=== PATIENT | male | born 2000 | race Caucasian/White ===

== ENCOUNTER 2019-12-20 02:21 | Emergency (ER) | payer OTHER ==
[~2019-12-20] VITALS: Ht 188 cm; Wt 87.1 kg
[~2019-12-20 02:21] MED LIST: ACCUTANE; IBUPROFEN 800800 MG PO
[2019-12-20] MEDS ORDERED: LORCET 5-325 M1 EACH PO (04:17)
[2019-12-20 04:30] VITALS: BP 111/71
== END 2019-12-20 04:30 | disposition home or self-care (01) ==
LOC: M.ERS 02:21
DX: S09.8XXA Other specified injuries of head, initial encounter (principal); V89.9XXA Person injured in unspecified vehicle accident, initial encounter; Y93.89 Activity, other specified; Y92.89 Other specified places as the place of occurrence of the external cause; Y99.8 Other external cause status

== ENCOUNTER 2019-12-31 15:01 | Emergency (ER) | payer OTHER ==
[~2019-12-31] VITALS: Ht 188 cm; Wt 87.1 kg
[~2019-12-31 15:01] MED LIST changes: +LORCET 5-325 M1 EACH PO
[2019-12-31 15:05] VITALS: BP 148/74
== END 2019-12-31 15:56 | disposition home or self-care (01) ==
LOC: M.ERS 15:01
DX: Z53.21 Procedure and treatment not carried out due to patient leaving prior to being seen by health care provider (principal)

== ENCOUNTER 2020-01-03 19:59 | Emergency (ER) | payer OTHER ==
[~2020-01-03] VITALS: Ht 188 cm; Wt 87.1 kg
[2020-01-03 20:23] LABS: URINE BILIRUBIN NEGATIVE (Negative); URINE BLOOD NEGATIVE (Negative); URINE CLARITY CLEAR; URINE COLOR YELLOW; URINE GLUCOSE-RANDOM NEGATIVE (Negative); URINE KETONES NEGATIVE (Negative); URINE LEUKOCYTES-REFLEX NEGATIVE (Negative); URINE NITRITE-REFLEX NEGATIVE (Negative); URINE PROTEIN NEGATIVE (Negative); URINE SPECIFIC GRAVITY >= 1.030 (1.005-1.030)
[2020-01-03 20:25] LABS: ABSOLUTE EOSINOPHILS 0.1 thou/uL (0.0-0.7); ABSOLUTE LYMPHOCYTES 2.7 thou/uL (0.8-5.3); ABSOLUTE MONOCYTES 0.6 thou/uL (0.0-1.2); ABSOLUTE NEUTROPHILS 2.5 thou/uL (1.6-8.1); BASOPHILS 0.4 %; EOSINOPHILS 2.1 %; HEMATOCRIT 39.9 % (42.0-52.0); HEMOGLOBIN 14.3 gm/dL (14.0-18.0); LYMPHOCYTES 44.9 %; MCH 30.1 pg (26.0-34.0); MCHC 35.9 g/dL (28.0-37.0); MCV 83.9 fL (80.0-100.0); MONOCYTES 10.1 %; MPV 7.8 fl. (7.2-11.1); NUCLEATED RBCS 0 /100WBC; PLATELET COUNT* 202 thou/uL (150-400); POLYS 42.5 %; RBC 4.76 mil/uL (4.50-6.00); RDW-CV 12.1 % (10.5-14.5)
[2020-01-03 20:31] LABS: CALCIUM 7.9 mg/dL (8.5-10.1); CREATININE 1.2 mg/dL (0.6-1.3); POTASSIUM 3.7 mmol/L (3.5-5.1)
[2020-01-03 20:36] LABS: ALBUMIN 3.7 g/dL (3.4-5.0); TOTAL BILIRUBIN 0.6 mg/dL (<0.1-1.0); TOTAL PROTEIN 7.3 g/dL (6.4-8.2)
[2020-01-03 21:17] VITALS: BP 130/70
== END 2020-01-03 21:22 | disposition home or self-care (01) ==
LOC: M.ERS 19:59
PROVIDERS: Family Medicine
DX: R10.31 Right lower quadrant pain (principal)